=== PATIENT | female | born 1985 | race Caucasian/White ===

== ENCOUNTER 2018-04-06 03:09 | Inpatient (IN) | payer MEDICAID, OTHER ==
[2018-04-06 05:41] LABS: ABS Basophils 0 10^3/ul (0-0.2); ABS Eosinophils 0 10^3/ul (0-0.6); ABS Lymphocytes 1.4 10^3/ul (1.0-4.8); ABS Monocytes 0.8 10^3/ul (0-0.8); ABS Neutrophils 13.8 10^3/ul (1.5-7.7); ABS Nucleated RBC 0 10^3/ul; Eosinophil % 0.2 % (0-6); Hematocrit 39 % (35-47); Hemoglobin 13.4 g/dl (12.0-16.0); Lymphocyte % 8.5 % (25-47); Mean Corpuscular HGB Conc 34 g/dl (31-36); Mean Corpuscular Hemoglobin 30 pg (27-31); Mean Corpuscular Volume 89 fL (80-97); Mean Platelet Volume 10.3 um3 (7.4-10.4); Nucleated Red Blood Cells % 0; Platelet Count 157 10^3/ul (150-450); Red Blood Count 4.41 10^6/ul (4.0-5.4); Red Cell Distribution Width 13 % (10.5-15); White Blood Count 16.1 10^3/ul (3.5-10.8)
[2018-04-06] MEDS ORDERED: OBEPIDURAL* 0 ML EPIDURAL ONE (05:46)
[2018-04-06] MEDS ORDERED: Dibucaine 1% 28.35 GM TUBE PR PRN (07:25)
[2018-04-06] MEDS ORDERED: Acetaminophen TAB* 325 MG PO PRN (07:25)
[2018-04-06] MEDS ORDERED: Glycerin ADULT SUPP PR PRN (07:25)
[2018-04-06] MEDS ORDERED: Witch Hazel PAD* JAR TOPICAL PRN (07:25)
[2018-04-06] MEDS: Ibuprofen TAB* 600 MG PO PRN ×3 (08:25→20:55)
[2018-04-06] MEDS: Docusate CAP* 100 MG PO SCH ×3 (10:45→20:53)
[2018-04-07 06:32] LABS: ABS Basophils 0 10^3/ul (0-0.2); ABS Eosinophils 0.1 10^3/ul (0-0.6); ABS Lymphocytes 1.9 10^3/ul (1.0-4.8); ABS Monocytes 0.9 10^3/ul (0-0.8); ABS Nucleated RBC 0 10^3/ul; Eosinophil % 1.1 % (0-6); Hematocrit 39 % (35-47); Hemoglobin 13.3 g/dl (12.0-16.0); Lymphocyte % 14.4 % (25-47); Mean Corpuscular HGB Conc 34 g/dl (31-36); Mean Corpuscular Hemoglobin 31 pg (27-31); Mean Corpuscular Volume 90 fL (80-97); Nucleated Red Blood Cells % 0; Platelet Count 149 10^3/ul (150-450); Red Cell Distribution Width 14 % (10.5-15); White Blood Count 12.9 10^3/ul (3.5-10.8)
[2018-04-07 07:58] VITALS: BP 102/60
[2018-04-07] MEDS: Ibuprofen TAB* 600 MG PO PRN ×2 (08:34→14:43)
[2018-04-07] MEDS: Docusate CAP* 100 MG PO SCH (08:34)
[2018-04-07] MEDS ORDERED: Ferrous Gluconate TAB* 324 MG TAB PO SCH (09:00)
[2018-04-07] MEDS ORDERED: Tetan/Diph/Pertus SYR(Tdap)* 0.5 ML SYR(BOOSTRIX) use SYR IM ONE (09:00)
--- NOTE | 2018-04-18 13:55 | HP ---
General Information - General Information Maternal Age: 32 Grav: 3 Para: 1 SAB: 0 IEA: 1 Estimated Due Date: 04/14/18 Determined By: LMP Gestational Age in Weeks and Days: 38 Weeks and 6 Days Maternal Blood Type and Rh: O Positive - Results this Serology/RPR Result: Non-Reactive Rubella Result: Immune HBsAg Result: Negative HIV Result: Negative GBS Culture Result: Negative Past Medical History Delivery History: Hx Uncomplicated Vaginal Delivery Pertinent Past Medical History: Non-Contributory Pertinent Past Surgical History: See Records - hernia repair age 11 Pertinent Family History: Non-Contributory - Antepartal Records Antepartal Records: Reviewed, Uncomplicated Review of Systems Constitutional: Uncomfortable - secondary to ctx CV Complaint: No Respiratory: Shortness of Breath: No Gastrointestinal: No Nausea/Vomiting, Normal Bowel Movement Genitourinary: No Dysuria, No Bleeding, No Leaking Fluid Musculoskeletal: No Complaint Neurological: No Headache, No Visual Changes Movement: Normal Exam Allergies/Adverse Reactions: Allergies No Known Allergies Allergy (Verified 04/06/18 07:43) T-97.5, P-112, R-18, BP- 112/80, O2- 100% Lab Values - Entire Visit: Laboratory Tests 04/06/18 04/06/18 04/07/18 05:33 05:33 06:10 WBC 16.1 H 12.9 H RBC 4.41 4.30 Hgb 13.4 13.3 Hct 39 39 MCV 89 90 MCH 30 31 MCHC 34 34 RDW 13 14 Plt Count 157 149 L MPV 10.3 10.0 Neut % (Auto) 86.0 H 77.0 Lymph % (Auto) 8.5 L 14.4 L [place] % (Auto) 5.0 7.3 H Eos % (Auto) 0.2 1.1 Baso % (Auto) 0.3 0.2 Absolute Neuts (auto) 13.8 H 10.0 H Absolute Lymphs (auto) 1.4 1.9 Absolute Monos (auto) 0.8 0.9 H Absolute Eos (auto) 0 0.1 Absolute Basos (auto) 0 0 Absolute Nucleated RBC 0 0 Nucleated RBC % 0 0 Blood Type O Positive Antibody Screen Negative - Measurements Height: 5 ft 8.5 in Weight: 86.636 kg Weight in lbs: 191 Body Mass Index (BMI): 28.6 Pre- Weight: 70.307 kg Weight Gained This : 36 lbs and 0 ozs - Exam Abdomen: No Upper Quadrant Pain Breast: Breast Exam Deferred CVA: No CVA Tenderness Extremities: No Edema Heart: Normal Rhythm/Heart Sounds HEENT: No Significant Findings Lungs: Clear Bilaterally Rectal: Rectal Exam Deferred Reflexes: DTR 2+ Thyroid: No Thyromegaly - Abdominal Exam Abdomen Exam: Non-Tender, Fundal Height Consistent with Dates - Ultrasound/Biophysical Profile Ultrasound Status: Not Done Targeted Exam Findings See L&D Outpatient Visit Provider Note for Findings: N/A Estimated Weight: 7# Cervical Exam: 4cm Effacement: 80% Station: -1 Presenting Part: Vertex Membrane Status: Bulging Bleeding/Discharge: None EFM Findings - External Monitor Findings Baseline Heart Rate: 155 External Monitor Findings: No Pattern of Variable or Late Decelerations, Variability Moderate, Baseline Stable Contractions: Regular, 45-90 Seconds Contraction Frequency: 2-3 Assessment/Plan - Reason for Visit Reason for Visit: Contractions increasing in strength and frequency - Plan Plan: Active Labor - Date/Time of Admission Date of Admission: 04/06/18 Time of Admission: 04:00
== END 2018-04-07 14:47 | disposition home or self-care (01) | DRG 560 ==
LOC: MCHOBOUT 03:09 → MCHOB 04:03
PROVIDERS: ADMIT Midwife; ATTEND Midwife
PROC: 10E0XZZ Delivery of Products of Conception, External Approach (ICD-10-PCS; principal; 2018-04-06)
PROC: 0HQ9XZZ Repair Perineum Skin, External Approach (ICD-10-PCS; 2018-04-06)
PROC: 10907ZC Drainage of Amniotic Fluid, Therapeutic from Products of Conception, Via Natural or Artificial Opening (ICD-10-PCS; 2018-04-06)
PROC: 4A1HX4Z Monitoring of Products of Conception, Cardiac Electrical Activity, External Approach (ICD-10-PCS; 2018-04-06)
DX: O70.0 First degree perineal laceration during delivery (principal); Z3A.38 38 weeks gestation of pregnancy; Z37.0 Single live birth
CPT/HCPCS: 36415; 85025; 86850; 86900; 86901; A9270-GY